=== PATIENT | female | born 1995 | race Caucasian/White ===

== ENCOUNTER 2016-12-21 01:32 | Emergency (ER) | payer OTHER ==
[2016-12-21 01:54] VITALS: BP 127/70
--- NOTE | 2016-12-21 06:34 | ED ---
Vinny, DoctorLupe, scribed for Danni Franklin MD on 12/21/16 at 0413 . Lower Extremity - HPI Summary HPI Summary: 21 year old female arrived to [facility] c/o left ankle pain beginning at 23:30 yesterday. She reports rolling her ankle yesterday in practice, with pain after onset rated 8/10. However, her pain has reduced after taking 400 mg Advil (at 23 :30) and is now rated 2/10. She has no other relevant PMHx, and is a student at [employer] - History of Current Complaint Chief Complaint: EDExtremityLower Stated Complaint: LT ANKLE INJURY Time Seen by Provider: 12/21/16 03:26 Hx Obtained From: Patient Mechanism Of Injury: Fall From Height Of: - "rolled" left ankle after coming down on it Onset of Pain: Hours, Prior to Arrival - about 6 hours [employer] Onset/Duration: Still Present - still present, but alleviated Severity Initially: Moderate Severity Currently: Moderate Pain Intensity: 6 Pain Scale Used: 0-10 Numeric Timing: Lasting Hours Aggravating Factor(s): Ambulation, Weight Bearing Alleviating Factor(s): Rest, OTC Meds - Advil - Allergies/Home Medications Allergies/Adverse Reactions: Allergies Allergy/AdvReac Type Severity Reaction Status Date / Time latex Allergy Rash And Uncoded 12/21/16 01:51 Itching PMH/Surg Hx/FS Hx/Imm Hx Cardiovascular History: Denies: Hx Hypertension Neurological History: Reports: Hx Migraine - Immunization History Date of Tetanus Vaccine: up to date per pt Infectious Disease History: No Infectious Disease History: Denies: Traveled Outside the [place] in Last 30 Days - Family History Known Family History: Negative: Cardiac Disease, Hypertension, Diabetes - Social History Occupation: Student Alcohol Use: Weekly Substance Use Type: Reports: None Smoking Status (MU): Never Smoked Tobacco Review of Systems Negative: Fever Positive: Other - left ankle pain All Other Systems Reviewed And Are Negative: Yes Physical Exam Triage Information Reviewed: Yes Vital Signs On Initial Exam: Initial Vitals Temp Pulse Resp BP Pulse Ox 98.7 F 80 18 127/70 100 12/21/16 01:49 12/21/16 01:49 12/21/16 01:49 12/21/16 01:49 12/21/16 01:49 Vital Signs Reviewed: Yes Appearance: Positive: Well-Appearing, No Pain Distress Skin: Positive: Warm, Skin Color Reflects Adequate Perfusion, Dry Eyes: Positive: EOMI, KARIN ENT: Positive: Pharynx normal, TMs normal Neck: Positive: Supple, Nontender Respiratory/Lung Sounds: Positive: Clear to Auscultation, Breath Sounds Present. Negative: Rales, Rhonchi, Wheezes Cardiovascular: Positive: RRR. Negative: Murmur, Rub Abdomen Description: Positive: Nontender, Soft Bowel Sounds: Positive: Present Musculoskeletal: Positive: Other - left ankle tenderness. Negative: Edema Left , Edema Right Neurological: Positive: Sensory/Motor Intact, Alert, Oriented to Person Place, Time, CN Intact II-III Psychiatric: Positive: Affect/Mood Appropriate Diagnostics - Vital Signs Vital Signs Temp Pulse Resp BP Pulse Ox 12/21/16 01:49 98.7 F 80 18 127/70 100 - Laboratory Lab Statement: Any lab studies that have been ordered have been reviewed, and results considered in the medical decision making process. - Radiology Ankle X-Ray Radiology Interpretation Completed By: ED Physician - Negative Lower Extremity Course/Dx - Course Course Of Treatment: ankle sprain no medial tenderness and mortisse not widened on xray - Diagnoses Provider Diagnoses: Ankle injury Discharge - Discharge Plan Condition: Stable Disposition: HOME Patient Education Materials: Ankle Strain (ED) Referrals: [facility] LARISA Butcher [Primary Care Provider] - Additional Instructions: Follow up with [facility] The documentation as recorded by the Doctor lopez Tahera accurately reflects the service I personally performed and the decisions made by , Danni Franklin MD.
--- NOTE | 2016-12-21 07:52 | RAD ---
HISTORY: Lateral malleolus injury, left ankle COMPARISONS: None VIEWS: 3, Frontal, lateral, and oblique views of the left ankle FINDINGS: BONE DENSITY: Normal. BONES: There is no displaced fracture. JOINTS: There is no arthropathy. ALIGNMENT: There is no dislocation. SOFT TISSUES: There is soft tissue swelling over the lateral malleolus OTHER FINDINGS: None. IMPRESSION: SOFT TISSUE SWELLING. NO ACUTE OSSEOUS INJURY. IF SYMPTOMS PERSIST, RECOMMEND REPEAT IMAGING.
== END 2016-12-21 04:41 | disposition home or self-care (01) ==
LOC: ED 01:32
DX: M25.572 Pain in left ankle and joints of left foot (principal); S99.812A Other specified injuries of left ankle, initial encounter; X50.9XXA Other and unspecified overexertion or strenuous movements or postures, initial encounter; Y93.9 Activity, unspecified; Y92.9 Unspecified place or not applicable
CPT/HCPCS: 99283